=== PATIENT | male | born 2000 | race Caucasian/White ===

== ENCOUNTER 2024-05-10 12:48 | Emergency (ER) | payer BC ==
[2024-05-10] MEDS: Cyclobenzaprine 10 MG Tab PO ONE (14:13)
== END 2024-05-10 15:24 | disposition home or self-care (01) ==
LOC: JD.ED 12:48
DX: S16.1XXA Strain of muscle, fascia and tendon at neck level, initial encounter (principal); X58.XXXA Exposure to other specified factors, initial encounter
CPT/HCPCS: 99283; A9270